=== PATIENT | male | born 1970 | race Caucasian/White ===

== ENCOUNTER 2021-10-31 07:13 | Outpatient (CLI) | payer OTHER | END 2021-10-31 07:25 | disposition home or self-care (01) | LOC: RAD 07:13 | PROVIDERS: ATTEND Urology | DX: N20.0 Calculus of kidney (principal) ==

== ENCOUNTER 2021-11-07 07:04 | Outpatient (CLI) | payer OTHER | END 2021-11-07 08:06 | disposition home or self-care (01) | LOC: LAB 07:04 | PROVIDERS: ATTEND Urology | DX: N20.0 Calculus of kidney (principal); Z20.822 Contact with and (suspected) exposure to COVID-19; Z01.810 Encounter for preprocedural cardiovascular examination ==

== ENCOUNTER 2021-11-07 16:19 | Outpatient (CLI) | payer OTHER | END 2021-11-07 16:36 | disposition home or self-care (01) | LOC: LAB 16:19 | PROVIDERS: ATTEND Urology | DX: N30.00 Acute cystitis without hematuria (principal) ==

== ENCOUNTER 2021-11-08 08:15 | Inpatient (IN) | payer OTHER ==
[~2021-11-08] VITALS: Ht 167.6 cm; Wt 88.5 kg
== END 2021-11-15 13:44 | disposition home or self-care (01) | DRG 661 ==
LOC: ADM 08:45 → CIR.AMB 11-13 08:45 → EDSTATUS 11-13 08:45 → SURH 11-13 08:45 → O/R 11-13 09:07 → SURH 11-13 09:45
PROVIDERS: ADMIT Urology; ATTEND Urology
PROC: BT1FYZZ Fluoroscopy of Left Kidney, Ureter and Bladder using Other Contrast (ICD-10-PCS; 2021-11-13)
PROC: 0TC13ZZ Extirpation of Matter from Left Kidney, Percutaneous Approach (ICD-10-PCS; principal; 2021-11-13 09:45)
DX: N20.0 Calculus of kidney (principal); R31.9 Hematuria, unspecified